=== PATIENT | male | born 1985 | race Caucasian/White ===

== ENCOUNTER 2021-11-02 06:31 | Day surgery (SDC) | payer MEDICAID, SELFPAY ==
[~2021-11-02] VITALS: Ht 177.8 cm; Wt 81.6 kg
[2021-11-02] MEDS ORDERED: CLINDAMYCIN 600 mg/50mL D5W 50 ML IV ONE (07:00)
[2021-11-02] MEDS ORDERED: NS IRRIG SOLN 1000 ML IR ONE (08:25)
[2021-11-02] MEDS ORDERED: ROCURONIUM BROMIDE 10 MG/ML (ZEMURON) ONE (08:25)
[2021-11-02] MEDS ORDERED: DEXAMETHASONE SOD PHOSPHATE 4 MG/ML VIAL ONE (08:25)
[2021-11-02] MEDS ORDERED: LR 1,000 ML IV.SOLN IV ONE (08:25)
[2021-11-02] MEDS ORDERED: METOCLOPRAMIDE HCL 10 MG/2 ML VIAL ONE (08:25)
[2021-11-02] MEDS ORDERED: MIDAZOLAM HCL 5 MG/5 ML VIAL ONE (08:25)
[2021-11-02] MEDS ORDERED: SEVOFLURANE 15 MIN GAS INH ONE (08:25)
[2021-11-02] MEDS ORDERED: fentaNYL CITRATE 250 MCG/5 ML AMP ONE (08:25)
[2021-11-02] MEDS ORDERED: PROPOFOL 200MG/ 20ML VIAL (DIPRIVAN) IV ONE (08:25)
[2021-11-02] MEDS ORDERED: KETOROLAC TROMETHAMINE 30 MG VIAL ONE ×2 (08:25→11:02)
[2021-11-02] MEDS ORDERED: ONDANSETRON HCL 4 MG/2 ML VIAL ONE (08:25)
[2021-11-02] MEDS ORDERED: KETOROLAC TROMETHAMINE 30 MG VIAL IVP PRN (09:45)
[2021-11-02] MEDS ORDERED: NALOXONE HCL 0.4 MG/ML AMP (NARCAN) IVP PRN (09:45)
[2021-11-02] MEDS ORDERED: HYDROmorphone 1 MG/ML INJ. CARTRIDGE IVP PRN (09:45)
[2021-11-02] MEDS ORDERED: LR 1,000 ML IV SCH (09:45)
[2021-11-02] MEDS ORDERED: ONDANSETRON HCL 4 MG/2 ML VIAL IVP PRN ×2 (09:45→11:00)
[2021-11-02] MEDS ORDERED: MEPERIDINE HCL/PF 25 MG/ML DISP.SYRIN IVP PRN (09:45)
[2021-11-02] MEDS ORDERED: HYDROcodone/ACETAMIN 5-325 MG TAB (NORCO/ VICODIN) PO PRN (11:00)
[2021-11-02] MEDS ORDERED: ACETAMINOPHEN 500 MG TABLET PO PRN (11:00)
[2021-11-02] MEDS ORDERED: ONDANSETRON 4 MG ODT TAB PO PRN (11:00)
[2021-11-02] MEDS ORDERED: HYDROcodone/ACETAMIN 5-325 MG TAB (NORCO/ VICODIN) ONE (11:45)
[2021-11-02 13:46] VITALS: BP_SYST 117
== END 2021-11-02 13:10 | disposition home or self-care (01) ==
LOC: SDS 06:31 → SMU 06:32 → SDS 13:10
PROVIDERS: ATTEND Otolaryngology
DX: M95.0 Acquired deformity of nose (principal); J34.2 Deviated nasal septum; Z79.899 Other long term (current) drug therapy; Z20.822 Contact with and (suspected) exposure to COVID-19
CPT/HCPCS: 30410; 36415; 87426; J1100; J1885; J2250; J2405; J2704; J2765; J3010; J3490; J7120; U0003

== ENCOUNTER 2021-11-30 08:19 | Day surgery (SDC) | payer MEDICAID, SELFPAY ==
[~2021-11-30] VITALS: Ht 177.8 cm; Wt 79.4 kg
[2021-11-30] MEDS ORDERED: ONDANSETRON HCL 4 MG/2 ML VIAL IVP PRN ×2 (12:15→12:30)
[2021-11-30] MEDS ORDERED: HYDROmorphone 1 MG/ML INJ. CARTRIDGE IVP PRN (12:15)
[2021-11-30] MEDS ORDERED: LR 1,000 ML IV.SOLN IV ONE (12:18)
[2021-11-30] MEDS ORDERED: DESFLURANE 15 MIN GAS INH ONE (12:18)
[2021-11-30] MEDS ORDERED: NS IRRIG SOLN 1000 ML IR ONE (12:18)
[2021-11-30] MEDS ORDERED: DEXAMETHASONE SOD PHOSPHATE 4 MG/ML VIAL ONE (12:18)
[2021-11-30] MEDS ORDERED: METOCLOPRAMIDE HCL 10 MG/2 ML VIAL ONE (12:18)
[2021-11-30] MEDS ORDERED: OXYMETAZOLINE HCL 0.05% NASAL SPRAY NS ONE (12:18)
[2021-11-30] MEDS ORDERED: fentaNYL CITRATE/PF 100 MCG/2 ML AMP ONE (12:18)
[2021-11-30] MEDS ORDERED: [UNRECOGNIZED DRUG - OTHER] ONE (12:18)
[2021-11-30] MEDS ORDERED: SUCCINYLCHOLINE CHLORIDE 20 MG/ML(QUELICIN) ONE (12:18)
[2021-11-30] MEDS ORDERED: PROPOFOL 200MG/ 20ML VIAL (DIPRIVAN) IV ONE (12:18)
[2021-11-30] MEDS ORDERED: ONDANSETRON HCL 4 MG/2 ML VIAL ONE (12:18)
[2021-11-30] MEDS ORDERED: SUGAMMADEX SODIUM 200 MG/2 ML VIAL IV ONE (12:18)
[2021-11-30] MEDS ORDERED: ROCURONIUM BROMIDE 10 MG/ML (ZEMURON) ONE (12:18)
[2021-11-30] MEDS ORDERED: ONDANSETRON 4 MG ODT TAB PO PRN (12:30)
[2021-11-30] MEDS ORDERED: ACETAMINOPHEN 500 MG TABLET PO PRN (12:30)
[2021-11-30] MEDS ORDERED: HYDROcodone/ACETAMIN 5-325 MG TAB (NORCO/ VICODIN) PO PRN (12:30)
[2021-11-30] MEDS ORDERED: HYDROmorphone 1 MG/ML INJ. CARTRIDGE ONE ×2 (12:51→13:10)
[2021-11-30] MEDS: HYDROmorphone 1 MG/ML INJ. CARTRIDGE IVP PRN ×3 (12:55→13:15)
[2021-11-30] MEDS ORDERED: KETOROLAC TROMETHAMINE 30 MG VIAL ONE (13:19)
[2021-11-30] MEDS ORDERED: ACETAMINOPHEN I.V. 1000 MG 100 ML IV ONE ×2 (13:19→13:30)
[2021-11-30] MEDS ORDERED: KETOROLAC TROMETHAMINE 30 MG VIAL IM ONE (13:30)
[2021-11-30 15:41] VITALS: BP_SYST 130
== END 2021-11-30 15:00 | disposition home or self-care (01) ==
LOC: SDS 08:19 → SMU 08:20 → SDS 15:00
PROVIDERS: ATTEND Otolaryngology
DX: S02.2XXA Fracture of nasal bones, initial encounter for closed fracture (principal); M95.0 Acquired deformity of nose; X58.XXXA Exposure to other specified factors, initial encounter; Y93.89 Activity, other specified; Y92.89 Other specified places as the place of occurrence of the external cause; Y99.8 Other external cause status; Z20.822 Contact with and (suspected) exposure to COVID-19; Z79.899 Other long term (current) drug therapy
CPT/HCPCS: 21320; 36415; 87426; J0131; J0330; J1100; J1170; J1885; J2405; J2704; J2765; J3010; J3490; J7120